=== PATIENT | male | born 1955 | race Caucasian/White ===

== ENCOUNTER 2021-11-12 07:13 | Emergency (ER) | payer OTHER ==
[~2021-11-12] VITALS: Ht 175.3 cm; Wt 61.2 kg
[~2021-11-12 07:13] MED LIST: ALBU90OI INH; AMLO10 PO; AZIT250 PO; CEPH500 PO; Cleocin HCl300 MG PO; HYDACE5 PO; HYDCHL25 PO; INDO50 PO; METPRE4DP PO; Norco 5-325 Ta1 EACH PO; OLAN5; OLAN5 PO; OXYC5; PROC10 PO; PROP20; PROP20 PO; SULTRIDS PO; TRAM50 PO
[2021-11-12] MEDS ORDERED: NAPR500 PO (09:37)
== END 2021-11-12 10:58 | disposition home or self-care (01) ==
LOC: ER 07:13
DX: G89.29 Other chronic pain (principal); M54.50 Low back pain, unspecified; I10 Essential (primary) hypertension; F17.210 Nicotine dependence, cigarettes, uncomplicated
CPT/HCPCS: 99283; A9270

== ENCOUNTER 2023-10-04 08:56 | Emergency (ER) | payer MEDICARE, OTHER ==
[~2023-10-04] VITALS: Ht 175.3 cm; Wt 65.8 kg
[~2023-10-04 08:56] MED LIST changes: +NAPR500 PO
[2023-10-04 09:30] VITALS: BP 134/92
[2023-10-04] MEDS ORDERED: IBUP600 PO (10:13)
[2023-10-04] MEDS ORDERED: TRAM50 PO (10:13)
== END 2023-10-04 10:44 | disposition home or self-care (01) ==
LOC: ER 08:56
DX: S90.31XA Contusion of right foot, initial encounter (principal); I10 Essential (primary) hypertension; F17.210 Nicotine dependence, cigarettes, uncomplicated; X58.XXXA Exposure to other specified factors, initial encounter
CPT/HCPCS: 73630; 99283-25; A9270